=== PATIENT | male | born 1975 | race Caucasian/White ===

== ENCOUNTER 2017-07-16 09:02 | Emergency (ER) | payer OTHER ==
[~2017-07-16] VITALS: Ht 180.3 cm; Wt 150.5 kg
[2017-07-16 10:03] LABS: HEMATOCRIT 51.3 % (38.0-50.0); HEMOGLOBIN 17.7 G/DL (12.5-16.6); MCH 27.9 PG (29.0-34.0); MCHC 34.5 G/DL (30.0-36.0); MCV 80.9 FL (86-99); PLATELET COUNT 174 K/uL (156-360); RBC DIS.WIDTH-CV 13.7 % (11.8-14.6); RBC DIS.WIDTH-SD 39.8 % (39-53); RED BLOOD COUNT 6.34 M/uL (4.00-5.50); WHITE BLOOD COUNT 9.2 K/uL (4.1-10.2)
[2017-07-16 10:14] LABS: CHLORIDE 101 mEq/L (99-109); POTASSIUM 3.8 mEq/L (3.7-5.4); SODIUM 138 mEq/L (136-147)
[2017-07-16 10:16] LABS: GLUCOSE 150 mg/dL (70-99)
[2017-07-16 10:20] LABS: CREATININE 0.9 mg/dL (0.6-1.3); GFR ESTIMATE (CALCULATED) > 59 mL/min/ (58.99-99999)
[2017-07-16 10:21] LABS: UREA NITROGEN (BUN) 20 mg/dL (9-23)
[2017-07-16 10:37] LABS: TROP-I INTERPRETATION NEGATIVE; TROPONIN-I 0.08 ng/mL (0.0-0.30)
[2017-07-16 13:16] VITALS: BP 121/73
== END 2017-07-16 13:18 | disposition home or self-care (01) ==
LOC: EME 09:02
PROVIDERS: Emergency Medicine
DX: R55 Syncope and collapse (principal); R42 Dizziness and giddiness; R11.0 Nausea; I10 Essential (primary) hypertension; Z87.891 Personal history of nicotine dependence
CPT/HCPCS: 71046; 80048; 83880; 84484; 85027; 93005; 99281; 99284